=== PATIENT | male | born 1940 | race Caucasian/White ===

== ENCOUNTER 2023-12-09 06:23 | Outpatient (CLI) | payer MEDICARE, BC, SELFPAY ==
--- NOTE | 2023-12-09 07:56 | W.ANESCHARGE ---
Anesthesia Charges Start Date/Time Anesthesia Start Date: 12/09/23 Anesthesia Start Time: 07:18 Stop Date/Time Anesthesia Stop Date: 12/09/23 Anesthesia Stop Time: 07:53 Summary Extremes of Age - Over 70 or under 1: [employer]
--- NOTE | 2023-12-09 08:20 | W.ANESCHARGE ---
Anesthesia Charges Start Date/Time Anesthesia Start Date: 12/09/23 Anesthesia Start Time: 07:18 Stop Date/Time Anesthesia Stop Date: 12/09/23 Anesthesia Stop Time: 07:53 Summary Extremes of Age - Over 70 or under 1: MDA
== END 2023-12-09 06:24 | disposition home or self-care (01) ==
LOC: OP CLINIC 06:24
PROVIDERS: PCP Family Medicine; Visit Provider Internal Medicine Gastroenterology
DX: Z12.11 Encounter for screening for malignant neoplasm of colon (principal); R19.5 Other fecal abnormalities; Z86.010 Personal history of colon polyps
CPT/HCPCS: 00811; 00812; 45378; 99100; J2704